=== PATIENT | female | born 1960 | race Caucasian/White ===

== ENCOUNTER 2022-10-09 18:41 | Emergency (ER) | payer MEDICARE, OTHER ==
[~2022-10-09] VITALS: Ht 162.6 cm; Wt 72.7 kg
[~2022-10-09 18:41] MED LIST: RISP0.5T61 PO
[2022-10-09] MEDS: QUEtiapine FUMARATE 100 MG TABLET PO ONE (20:39)
[2022-10-09] MEDS: LORazepam 1 MG TABLET PO ONE (20:39)
[2022-10-09 20:42] LABS: BASOPHILS % (AUTO) 0.9 % (0.0-2.0); EOSINOPHILS % (AUTO) 1.8 % (1.0-6.0); HEMATOCRIT 42.3 % (36-46); HEMOGLOBIN 14.2 g/dL (12.0-16.0); LYMPHOCYTES # (AUTO) 2.5 K/uL (1.0-4.8); LYMPHOCYTES % (AUTO) 35.4 % (22.0-44.0); MEAN CORPUSCULAR HEMOGLOBIN 31.1 pg (26.0-34.0); MEAN CORPUSCULAR HGB CONC 33.5 G/dL (31.0-37.0); MEAN CORPUSCULAR VOLUME 93 fL (80-100); MONOCYTES # (AUTO) 0.4 K/uL (0.1-1.0); MONOCYTES % (AUTO) 6.1 % (2.0-9.0); NEUTROPHILS # (AUTO) 3.9 K/uL (1.8-7.7); NEUTROPHILS % (AUTO) 55.8 % (40.0-70.0); PLATELET COUNT (AUTO) 330 K/uL (150-450); RED BLOOD CELL COUNT(AUTO) 4.55 MIL/uL (4.00-5.20); RED CELL DISTRIBUTION WIDTH 13.5 % (11.5-14.5)
[2022-10-09 20:51] LABS: ANION GAP 8 mmol/L (8-16); CALCIUM, TOTAL 9.5 mg/dL (8.8-10.5); CARBON DIOXIDE 30 mmol/L (22-29); CHLORIDE 100 mmol/L (98-107); CREATININE 0.78 mg/dL (0.60-1.30); GLUCOSE,RANDOM 90 mg/dL (70-110); POTASSIUM 3.5 mmol/L (3.5-5.1); SODIUM SERUM 138 mmol/L (136-145); UREA NITROGEN, BLOOD 12 mg/dL (7-18)
[2022-10-09 20:53] LABS: GLOMERULAR FILTR. RATE CALC > 60 mL/min (>60)
[2022-10-09 20:57] LABS: ALANINE AMINOTRANSFERASE 25 U/L (12-78); ALBUMIN 4.4 g/dL (3.4-5.0); ALKALINE PHOSPHATASE 137 U/L (46-116); ASPARTATE AMINOTRANSFERASE 22 U/L (15-37); BILIRUBIN,TOTAL 0.7 mg/dL (0.1-1.0)
[2022-10-09] MEDS ORDERED: QUET25TA PO (22:22)
[2022-10-09] MEDS ORDERED: LORA-999 PO (22:22)
[2022-10-09 22:30] VITALS: BP 124/77
== END 2022-10-10 01:43 | disposition home or self-care (01) ==
LOC: EMS 19:03
DX: R07.89 Other chest pain (principal); F41.9 Anxiety disorder, unspecified; F69 Unspecified disorder of adult personality and behavior; F31.9 Bipolar disorder, unspecified; Z88.8 Allergy status to other drugs, medicaments and biological substances; Z91.018 Allergy to other foods
CPT/HCPCS: 99284; 80053; 85025; 36415; 93005; G0480

== ENCOUNTER 2023-03-31 17:14 | Inpatient (IN) | payer MEDICAID, OTHER ==
[~2023-03-31] VITALS: Ht 162.6 cm; Wt 73.2 kg
[~2023-03-31 17:14] MED LIST changes: +LORA-999 PO; +QUET25TA PO; -RISP0.5T61 PO
[2023-03-31 19:07] LABS: BASOPHILS % (AUTO) 0.5 % (0.0-2.0); EOSINOPHILS % (AUTO) 0.9 % (1.0-6.0); HEMATOCRIT 42.4 % (36-46); HEMOGLOBIN 13.8 g/dL (12.0-16.0); MEAN CORPUSCULAR HEMOGLOBIN 30.7 pg (26.0-34.0); MEAN CORPUSCULAR HGB CONC 32.5 G/dL (31.0-37.0); MEAN CORPUSCULAR VOLUME 94 fL (80-100); MONOCYTES # (AUTO) 0.5 K/uL (0.1-1.0); MONOCYTES % (AUTO) 6.7 % (2.0-9.0); NEUTROPHILS # (AUTO) 5.1 K/uL (1.8-7.7); NEUTROPHILS % (AUTO) 65.9 % (40.0-70.0); PLATELET COUNT (AUTO) 320 K/uL (150-450); RED CELL DISTRIBUTION WIDTH 13.8 % (11.5-14.5)
[2023-03-31 19:13] LABS: COVID AG,FIA SOURCE NASOPHARYNGEAL
[2023-03-31 19:17] LABS: ANION GAP 2 mmol/L (8-16); CALCIUM, TOTAL 9.5 mg/dL (8.8-10.5); CARBON DIOXIDE 30 mmol/L (22-29); CHLORIDE 102 mmol/L (98-107); CREATININE 0.75 mg/dL (0.60-1.30); GLOMERULAR FILTR. RATE CALC > 60 mL/min (>60); GLUCOSE,RANDOM 90 mg/dL (70-110); POTASSIUM 3.6 mmol/L (3.5-5.1); SODIUM SERUM 134 mmol/L (136-145)
[2023-03-31 19:24] LABS: ALANINE AMINOTRANSFERASE 21 U/L (12-78); ALBUMIN 4.1 g/dL (3.4-5.0); ALKALINE PHOSPHATASE 112 U/L (46-116); ASPARTATE AMINOTRANSFERASE 16 U/L (15-37); BILIRUBIN,TOTAL 0.8 mg/dL (0.1-1.0); TOTAL PROTEIN, SERUM 7.5 g/dL (6.4-8.2)
[2023-03-31] MEDS ORDERED: QUEtiapine FUMARATE 25 MG TABLET PO ONE (20:15)
[2023-03-31] MEDS ORDERED: HALOPERIDOL 5 MG TABLET PO PRN (21:00)
[2023-03-31] MEDS ORDERED: LORazepam 2 MG TABLET PO PRN (21:00)
[2023-03-31 23:21] VITALS: BP 127/81; PULSE 84; RESP 18; TEMP 98; O2SAT 98
[2023-04-01 08:06] VITALS: RESP 17
[2023-04-01] MEDS: QUEtiapine FUMARATE 25 MG TABLET PO SCH ×2 (10:45→11:08)
[2023-04-01] MEDS: DIVALPROEX SODIUM 250 MG DR TABLET PO SCH ×3 (10:45→17:00)
[2023-04-01] MEDS: BISACODYL 5 MG EC TABLET PO PRN (14:44)
[2023-04-01] MEDS ORDERED: GuaiFENesin/D-METHORPHAN [SUGAR-FREE] 200-20MG/10 ML SYRUP UDCUP PO PRN (16:00)
[2023-04-01] MEDS ORDERED: DOCUSATE SODIUM 100 MG CAPSULE PO PRN (16:00)
[2023-04-01] MEDS ORDERED: IBUPROFEN 400 MG TABLET PO PRN (16:00)
[2023-04-01] MEDS ORDERED: ALBUTEROL SULFATE HFA 90 MCG/PUFF 8 GM INHALER IH PRN (16:00)
[2023-04-01] MEDS ORDERED: MAGNESIUM HYDROXIDE SUSPENSION 30 ML UDCUP PO PRN (16:00)
[2023-04-01] MEDS ORDERED: NICOTINE 14 MG/24 HOUR PATCH TD PRN (16:00)
[2023-04-01] MEDS ORDERED: PETROLATUM,WHITE 28 GM JELLY TP PRN (16:00)
[2023-04-01] MEDS ORDERED: CloNIDine HCL 0.1 MG TABLET PO PRN (16:00)
[2023-04-01] MEDS ORDERED: LOPERAMIDE HCL 2 MG CAPSULE PO PRN (16:00)
[2023-04-01] MEDS ORDERED: ONDANSETRON HCL 4 MG TABLET PO PRN (16:00)
[2023-04-01] MEDS ORDERED: ACETAMINOPHEN 325 MG TABLET PO PRN (16:00)
[2023-04-01] MEDS ORDERED: OxyCODONE HCL/ACETAMINOPHEN 5-325 MG TABLET PO ONE (16:30)
[2023-04-01 20:00] VITALS: BP 107/58; PULSE 67; RESP 18; TEMP 97.3; O2SAT 96
[2023-04-01] MEDS: QUEtiapine FUMARATE 100 MG TABLET PO SCH (21:00)
[2023-04-02 07:51] LABS: BASOPHILS % (AUTO) 0.7 % (0.0-2.0); EOSINOPHILS % (AUTO) 2.4 % (1.0-6.0); HEMATOCRIT 44.3 % (36-46); HEMOGLOBIN 14.6 g/dL (12.0-16.0); LYMPHOCYTES # (AUTO) 1.6 K/uL (1.0-4.8); LYMPHOCYTES % (AUTO) 25.2 % (22.0-44.0); MEAN CORPUSCULAR HEMOGLOBIN 31.1 pg (26.0-34.0); MEAN CORPUSCULAR HGB CONC 32.9 G/dL (31.0-37.0); MEAN CORPUSCULAR VOLUME 95 fL (80-100); MONOCYTES # (AUTO) 0.4 K/uL (0.1-1.0); MONOCYTES % (AUTO) 6.2 % (2.0-9.0); NEUTROPHILS # (AUTO) 4.2 K/uL (1.8-7.7); NEUTROPHILS % (AUTO) 65.5 % (40.0-70.0); PLATELET COUNT (AUTO) 283 K/uL (150-450); RED BLOOD CELL COUNT(AUTO) 4.69 MIL/uL (4.00-5.20); RED CELL DISTRIBUTION WIDTH 13.8 % (11.5-14.5)
[2023-04-02 08:04] LABS: HEMOGLOBIN A1C 5.8 % (3.8-5.6)
[2023-04-02 08:13] LABS: CHOL/HDL RATIO 3.7 (3.9-5.7); THYROID STIMULATING HORMONE 1.12 uIU/mL (0.36-3.74)
[2023-04-02] MEDS: DIVALPROEX SODIUM 250 MG DR TABLET PO SCH ×2 (08:16→16:13)
[2023-04-02] MEDS: QUEtiapine FUMARATE 25 MG TABLET PO SCH (08:16)
[2023-04-02 08:29] VITALS: BP 125/80; PULSE 90; RESP 17; TEMP 98; O2SAT 98
[2023-04-02] MEDS: QUEtiapine FUMARATE 100 MG TABLET PO SCH (20:50)
[2023-04-02 22:54] VITALS: BP 131/70; PULSE 73; RESP 16; TEMP 97.8; O2SAT 97
[2023-04-03 07:38] LABS: APPEARANCE,URINE CLEAR (CLEAR); BILIRUBIN,URINE NEGATIVE (NEGATIVE); GLUCOSE, URINE (UA) NEGATIVE (NEGATIVE); KETONES,URINE NEGATIVE (NEGATIVE); LEUKOCYTE ESTERASE ,URINE MODERATE (NEGATIVE); NITRATE,URINE NEGATIVE (NEGATIVE); OCCULT BLOOD,URINE NEGATIVE (NEGATIVE); PROTEIN,URINE NEGATIVE (NEGATIVE); SPECIFIC GRAVITIY, URINE 1.006 (1.003-1.030); UROBILINOGEN,URINE <=1.0 mg/dL (<=1.0)
[2023-04-03 07:45] LABS: AMPHET/METH SCREEN,URINE NEGATIVE (NEGATIVE); BARBITURATE SCREEN, URINE NEGATIVE (NEGATIVE); BENZODIAZEPINES SCREEN,URINE NEGATIVE (NEGATIVE); CANNABINOID SCREEN,URINE NEGATIVE (NEGATIVE); COCAINE SCREEN,URINE NEGATIVE (NEGATIVE); METHADONE SCREEN, URINE NEGATIVE (NEGATIVE); OPIATE SCREEN,URINE NEGATIVE (NEGATIVE); PHENCYCLIDINE SCREEN,URINE NEGATIVE (NEGATIVE)
[2023-04-03 07:54] LABS: BACTERIA,URINE None Seen /HPF (None Seen); RBC,URINE None Seen /HPF (0-2); SQUAMOUS EPITHELIAL CELL,UR Few /LPF (None Seen)
[2023-04-03 08:15] VITALS: BP 127/62; PULSE 69; RESP 17; TEMP 97.5; O2SAT 95
[2023-04-03] MEDS: BISACODYL 5 MG EC TABLET PO PRN (08:31)
[2023-04-03] MEDS: DIVALPROEX SODIUM 250 MG DR TABLET PO SCH ×2 (08:31→16:53)
[2023-04-03] MEDS: QUEtiapine FUMARATE 25 MG TABLET PO SCH (08:38)
[2023-04-03] MEDS: QUEtiapine FUMARATE 100 MG TABLET PO SCH (20:05)
[2023-04-03 20:45] VITALS: BP 107/54; PULSE 87; RESP 18; TEMP 97.7; O2SAT 96
[2023-04-04 08:37] VITALS: RESP 18
[2023-04-04] MEDS: DIVALPROEX SODIUM 250 MG DR TABLET PO SCH ×3 (09:00→16:43)
[2023-04-04] MEDS: QUEtiapine FUMARATE 25 MG TABLET PO SCH (09:00)
[2023-04-04] MEDS: ZOLPIDEM TARTRATE 10 MG TABLET PO PRN (20:13)
[2023-04-04] MEDS: QUEtiapine FUMARATE 100 MG TABLET PO SCH (20:13)
[2023-04-05 04:23] VITALS: RESP 16; TEMP 97.8
[2023-04-05 08:18] VITALS: BP 112/64; PULSE 79; RESP 17; TEMP 98; O2SAT 95
[2023-04-05] MEDS: DIVALPROEX SODIUM 250 MG DR TABLET PO SCH ×2 (08:37→16:14)
[2023-04-05] MEDS: QUEtiapine FUMARATE 100 MG TABLET PO SCH (20:36)
[2023-04-05 22:09] VITALS: BP 116/65; PULSE 76; RESP 18; TEMP 97.2; O2SAT 97
[2023-04-06] MEDS: DIVALPROEX SODIUM 250 MG DR TABLET PO SCH ×3 (08:10→16:55)
[2023-04-06 09:15] VITALS: RESP 19
[2023-04-06 20:03] VITALS: BP 122/65; PULSE 75; RESP 18; TEMP 97.5; O2SAT 97
[2023-04-06] MEDS: QUEtiapine FUMARATE 100 MG TABLET PO SCH (20:20)
[2023-04-07 08:07] VITALS: RESP 16
[2023-04-07] MEDS: DIVALPROEX SODIUM 250 MG DR TABLET PO SCH ×2 (09:48→16:02)
[2023-04-07 18:17] VITALS: BP 148/78; PULSE 73; RESP 18; TEMP 97.8; O2SAT 96
[2023-04-07 20:00] VITALS: BP 126/81; PULSE 76; RESP 18; TEMP 97.3; O2SAT 97
[2023-04-07] MEDS: QUEtiapine FUMARATE 100 MG TABLET PO SCH (21:57)
[2023-04-07] MEDS: ZOLPIDEM TARTRATE 10 MG TABLET PO PRN (21:57)
[2023-04-08] MEDS: DIVALPROEX SODIUM 250 MG DR TABLET PO SCH ×3 (08:23→16:24)
[2023-04-08 13:31] VITALS: BP 137/77; PULSE 70; RESP 17; TEMP 97.5
[2023-04-08 20:07] VITALS: BP 113/65; PULSE 96; RESP 18; TEMP 97.3; O2SAT 96
[2023-04-08] MEDS: QUEtiapine FUMARATE 100 MG TABLET PO SCH (21:49)
[2023-04-09] MEDS: DIVALPROEX SODIUM 250 MG DR TABLET PO SCH ×2 (08:51→16:36)
[2023-04-09 09:17] VITALS: BP 115/65; PULSE 67; RESP 17; TEMP 97.5; O2SAT 96
[2023-04-09] MEDS: MAG HYDROX/AL HYDROX/SIMETH ES 30 ML SUSPENSION UDCUP PO PRN (12:03)
[2023-04-09 20:09] VITALS: BP 145/92; PULSE 85; RESP 20; TEMP 98.1; O2SAT 97
[2023-04-09] MEDS: QUEtiapine FUMARATE 100 MG TABLET PO SCH (21:50)
[2023-04-10 08:25] VITALS: RESP 16
[2023-04-10] MEDS: DIVALPROEX SODIUM 250 MG DR TABLET PO SCH ×2 (08:37→16:10)
[2023-04-10] MEDS: MAG HYDROX/AL HYDROX/SIMETH ES 30 ML SUSPENSION UDCUP PO PRN (18:31)
[2023-04-10] MEDS: QUEtiapine FUMARATE 100 MG TABLET PO SCH (20:00)
[2023-04-10 20:23] VITALS: BP 112/58; PULSE 80; RESP 16; TEMP 97.9; O2SAT 96
[2023-04-11] MEDS: DIVALPROEX SODIUM 250 MG DR TABLET PO SCH ×2 (08:15→16:28)
[2023-04-11 08:51] VITALS: BP_SYST 102; BP_SYST 116; BP_DIAS 63; BP_DIAS 68; PULSE 75; PULSE 84; RESP 17; RESP 19; TEMP 97.7; O2SAT 100; O2SAT 96
[2023-04-11 20:09] VITALS: BP 130/73; PULSE 92; RESP 19; TEMP 97.8; O2SAT 98
[2023-04-11] MEDS: QUEtiapine FUMARATE 100 MG TABLET PO SCH (21:09)
[2023-04-12 08:17] VITALS: BP 106/63; PULSE 76; RESP 16; TEMP 98.3; O2SAT 96
[2023-04-12] MEDS: DIVALPROEX SODIUM 250 MG DR TABLET PO SCH ×2 (09:29→16:07)
[2023-04-12] MEDS: QUEtiapine FUMARATE 100 MG TABLET PO SCH (20:37)
[2023-04-12 21:11] VITALS: BP 120/88; PULSE 88; RESP 18; TEMP 97.5; O2SAT 95
[2023-04-13] MEDS: DIVALPROEX SODIUM 250 MG DR TABLET PO SCH ×2 (08:26→16:45)
[2023-04-13 09:00] VITALS: RESP 18
[2023-04-13 20:30] VITALS: BP 120/84; PULSE 90; RESP 17; TEMP 97.7; O2SAT 96
[2023-04-13] MEDS: QUEtiapine FUMARATE 100 MG TABLET PO SCH (21:57)
[2023-04-14 08:04] VITALS: BP 138/91; PULSE 86; RESP 18; TEMP 98.6; O2SAT 97
[2023-04-14] MEDS: DIVALPROEX SODIUM 250 MG DR TABLET PO SCH (09:00)
[2023-04-14] MEDS ORDERED: DIVA-111 PO (14:17)
[2023-04-14] MEDS ORDERED: QUET100T PO (14:17)
== END 2023-04-14 15:15 | disposition left against medical advice (07) | DRG 750 ==
LOC: EMS 17:17 → B3A 21:49
PROVIDERS: ADMIT Psychiatry & Neurology Child & Adolescent Psychiatry; ATTEND Psychiatry & Neurology Child & Adolescent Psychiatry
DX: F25.0 Schizoaffective disorder, bipolar type (principal); I95.9 Hypotension, unspecified; E87.1 Hypo-osmolality and hyponatremia; Z91.199 Patient's noncompliance with other medical treatment and regimen due to unspecified reason; Z53.29 Procedure and treatment not carried out because of patient's decision for other reasons; Z20.822 Contact with and (suspected) exposure to COVID-19; G47.00 Insomnia, unspecified; Z59.02 Unsheltered homelessness; Z88.8 Allergy status to other drugs, medicaments and biological substances; Z79.899 Other long term (current) drug therapy
CPT/HCPCS: 80053; 80061; 80307; 81001; 83036; 84443; 85025; 87086; 87186; 99285; G0480